=== PATIENT | female | born 1965 | race Caucasian/White ===

== ENCOUNTER 2017-01-15 08:30 | Emergency (ER) | payer OTHER ==
[~2017-01-15] VITALS: Ht 167.6 cm; Wt 127.0 kg
[2017-01-15 08:38] VITALS: BP 151/78; PULSE 80; RESP 20; TEMP 98; O2SAT 99
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
[2017-01-15] MEDS ORDERED: IBUPROFEN 600 MG TAB PO ONE (09:15)
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
[2017-01-15] MEDS ORDERED: IBUP-232 PO (09:26)
[2017-01-15 09:28] VITALS: BP 166/88; PULSE 90; RESP 18; O2SAT 99
== END 2017-01-15 09:50 | disposition home or self-care (01) ==
LOC: PHED 08:30
DX: S20.219A Contusion of unspecified front wall of thorax, initial encounter (principal); S60.221A Contusion of right hand, initial encounter; S80.01XA Contusion of right knee, initial encounter; M54.2 Cervicalgia; M25.562 Pain in left knee; Z86.69 Personal history of other diseases of the nervous system and sense organs; V49.88XA Car occupant (driver) (passenger) injured in other specified transport accidents, initial encounter
CPT/HCPCS: 71020; 73130; 73564; 99284

== ENCOUNTER 2017-01-17 18:45 | Emergency (ER) | payer OTHER ==
[~2017-01-17] VITALS: Ht 167.6 cm; Wt 130.0 kg
[~2017-01-17 18:45] MED LIST: IBUP-232 PO
[2017-01-17 18:49] VITALS: BP 162/93; PULSE 93; RESP 17; TEMP 98.3; O2SAT 97
[2017-01-17] MEDS ORDERED: ROBA750T PO (20:18)
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
[2017-01-17] MEDS ORDERED: ORPHENADRINE INJ 60 MG/2 ML AMP IM ONE (20:30)
[2017-01-17] MEDS ORDERED: KETOROLAC TROMETHAMINE 60 MG/2 ML (IM) VIAL IM ONE (20:30)
== END 2017-01-17 20:43 | disposition home or self-care (01) ==
LOC: PHEFT 18:45
DX: S29.012A Strain of muscle and tendon of back wall of thorax, initial encounter (principal); V89.2XXA Person injured in unspecified motor-vehicle accident, traffic, initial encounter
CPT/HCPCS: 96372; 99284; J1885; J2360